=== PATIENT | female | born 1990 | race Two or more races ===

== ENCOUNTER 2023-12-09 13:35 | Observation (INO) | payer SELFPAY ==
[~2023-12-09] VITALS: Ht 175 cm; Wt 79.5 kg
[2023-12-09 14:55] LABS: Basophils # (auto) 0 10 ^3/uL (0-0.2); Basophils % (auto) 0.3 % (0.0-2.0); Eosinophils # (auto) 0.1 10 ^3/uL (0-0.8); Eosinophils % (auto) 0.9 % (0.0-7.0); Hematocrit 29.9 % (36.0-46.0); Hemoglobin 10.4 g/dL (12.2-16.2); Lymphocytes # (auto) 1.2 10 ^3/uL (0.4-5.4); Lymphocytes % (auto) 17.2 % (10.0-50.0); Mean Corpuscular Hemoglobin 30.9 pg (28.0-32.0); Mean Corpuscular Hgb Conc. 34.7 g/dL (32.0-36.0); Mean Corpuscular Volume 89.1 fL (80.0-100.0); Monocytes # (auto) 0.4 10 ^3/uL (0-1.3); Monocytes % (auto) 6.2 % (0.0-12.0); Neutrophils # (auto) 5.2 10 ^3/uL (1.6-8.6); Neutrophils % (auto) 75.4 % (37.0-80.0); Nucleated Red Blood Cells % 0.1 %; Red Blood Cells 3.35 10^6/uL (4.0-5.20); Red Cell Distribution Width 13.1 % (11.8-14.3); White Blood Cell 6.9 10^3/uL (4.4-10.8)
[2023-12-09 15:12] LABS: Alanine Aminotransferase 17 U/L (7-40); Albumin 3.6 g/dL (3.2-4.8); Alkaline Phosphatase 126 U/L (46-116); Anion Gap 9 (5-15); Aspartate Aminotransferase 17 U/L (13-40); BUN/Creatinine Ratio 18.8 (10.0-20.0); Blood Urea Nitrogen 9 mg/dL (9-23); Calcium 9.3 mg/dL (8.7-10.4); Carbon Dioxide 21 mmol/L (20-30); Chloride 109 mmol/L (98-107); Glucose 75 mg/dL (74-106); Sodium 139 mmol/L (136-145); Uric Acid 4.4 mg/dL (3.1-7.8)
[2023-12-09 15:13] LABS: Bilirubin, Total 0.4 mg/dL (0.2-1.0); Total Protein 6.2 g/dL (5.7-8.2)
[2023-12-09 15:19] LABS: INR 0.92 (0.9-1.15); Partial Thromboplastin Time 26.9 SEC (24.5-34.5); Prothrombin Time 9.8 sec (9.3-11.8)
[2023-12-09 16:07] LABS: Amphetamine Screen, Urine Neg (NEGATIVE); Barbiturate Scree,Urine Neg (NEGATIVE); Benzodiazephine Screen, Urine Neg (NEGATIVE); Cocaine Screen, Urine Neg (NEGATIVE); Urine Bacteria FEW /hpf (None Seen); Urine Blood Negative /uL (Negative); Urine Clarity Turbid (Clear); Urine Color Yellow (Yellow); Urine Mucus FEW (None Seen); Urine Protein, UAD 1+ (Negative); Urine Specific Gravity 1.034 (1.001-1.035); Urine Urobilinogen 2 mg/dL (Negative); Urine WBC 3 /hpf (0 - 5)
[2023-12-09 16:08] LABS: Cannabinoid Screen, Urine Neg (NEGATIVE); Opiate Scree,Urine Neg (NEGATIVE); Phencyclidine Screen, Urine Neg (NEGATIVE)
[2023-12-09 16:14] LABS: Creatinine, Urine 244.54 mg/dL (30.0-125.0); Urine Protein/Creatinine Ratio 0.12
[2023-12-09] MEDS ORDERED: PREN-96 PO (16:29)
[2023-12-11 03:06] LABS: RPR Non Reactive (Non Reactive)
[2023-12-11 08:06] LABS: Rubella Antibodies, IgG 1.75 index (Immune >0.99)
== END 2023-12-09 16:45 | disposition home or self-care (01) ==
LOC: LDRP 13:35
PROVIDERS: ADMIT Obstetrics & Gynecology; ATTEND Obstetrics & Gynecology
DX: O36.8130 Decreased fetal movements, third trimester, not applicable or unspecified (principal); Z3A.40 40 weeks gestation of pregnancy
CPT/HCPCS: 36415; 59025; 76805; 76818; 80053; 80307; 81001; 81002; 82570; 84156; 84550; 85025; 85610; 85730; 86592; 86703; 86762; 86803; 86850; 86900; 86901; 87340; 87491; 87591; 94760; G0378

== ENCOUNTER 2023-12-14 09:48 | Inpatient (IN) | payer SELFPAY ==
[~2023-12-14] VITALS: Ht 167.6 cm; Wt 68.0 kg
[~2023-12-14 09:48] MED LIST: PREN-96 PO
[2023-12-14] MEDS ORDERED: BUTORPHANOL TARTRATE 2 MG/1 ML VIAL IV PRN ×2 (10:15)
[2023-12-14 10:42] LABS: Basophils # (auto) 0 10 ^3/uL (0-0.2); Basophils % (auto) 0.2 % (0.0-2.0); Eosinophils # (auto) 0.1 10 ^3/uL (0-0.8); Eosinophils % (auto) 0.8 % (0.0-7.0); Hematocrit 32.5 % (36.0-46.0); Lymphocytes # (auto) 1.6 10 ^3/uL (0.4-5.4); Lymphocytes % (auto) 14.9 % (10.0-50.0); Mean Corpuscular Hemoglobin 30.1 pg (28.0-32.0); Mean Corpuscular Hgb Conc. 33.9 g/dL (32.0-36.0); Mean Corpuscular Volume 88.7 fL (80.0-100.0); Monocytes # (auto) 0.4 10 ^3/uL (0-1.3); Monocytes % (auto) 3.7 % (0.0-12.0); Neutrophils # (auto) 8.5 10 ^3/uL (1.6-8.6); Neutrophils % (auto) 80.4 % (37.0-80.0); Red Blood Cells 3.67 10^6/uL (4.0-5.20); Red Cell Distribution Width 13.3 % (11.8-14.3); White Blood Cell 10.5 10^3/uL (4.4-10.8)
[2023-12-14] MEDS ORDERED: TERBUTALINE SULFATE 1 MG/ML 1ML VIAL SC PRN (10:45)
[2023-12-14] MEDS: DERMOPLAST 60ML BOTTLE TOP PRN (10:50)
[2023-12-14] MEDS: PHISODERM TOP SOLN 240ML BTL TOP PRN (10:50)
[2023-12-14] MEDS: WITCH HAZEL-GLYCERIN PAD TOP PRN (10:51)
[2023-12-14] MEDS: LIDOCAINE 2%HCL (LOCAL ANESTH.) INJ 20ML MDV IJ PRN (10:51)
[2023-12-14] MEDS: PENICILLIN G POT 5MIL/D5 50ML 50 ML IV ONE (10:51)
[2023-12-14] MEDS: LACTATED RINGER'S 1,000 ML IV SCH (10:51)
[2023-12-14 11:04] LABS: INR 0.91 (0.9-1.15); Partial Thromboplastin Time 27.6 SEC (24.5-34.5); Prothrombin Time 9.7 sec (9.3-11.8)
[2023-12-14 11:07] LABS: Alanine Aminotransferase 15 U/L (7-40); Albumin 3.9 g/dL (3.2-4.8); Alkaline Phosphatase 136 U/L (46-116); Anion Gap 6 (5-15); Aspartate Aminotransferase 14 U/L (13-40); BUN/Creatinine Ratio 18.9 (10.0-20.0); Bilirubin, Total 0.4 mg/dL (0.2-1.0); Blood Urea Nitrogen 10 mg/dL (9-23); Calcium 9.3 mg/dL (8.5-10.1); Carbon Dioxide 24 mmol/L (20-30); Chloride 106 mmol/L (98-107); Glucose 83 mg/dL (74-106); Potassium 3.6 mmol/L (3.5-5.1); Sodium 136 mmol/L (136-145); Total Protein 6.5 g/dL (5.7-8.2)
[2023-12-14] MEDS: LIDOCAINE 2%HCL (LOCAL ANESTH.) INJ 20ML MDV ONE (11:50)
[2023-12-14] MEDS: LACT. RINGERS/OXYTOCIN 20UNITS 500 ML IV ONE ×2 (11:50)
[2023-12-14] MEDS ORDERED: IBUPROFEN 600 MG TAB PO PRN (12:15)
[2023-12-14] MEDS ORDERED: PENICILLIN G POTASSIUM 2,500,000 UNITS in D5W 5% 50 ML IV SCH (14:15)
[2023-12-14 15:20] VITALS: BP 135/78; PULSE 70; RESP 18; TEMP 98; O2SAT 98
[2023-12-14 18:30] VITALS: BP 137/71; PULSE 73; RESP 20; TEMP 98.1; O2SAT 97
[2023-12-14] MEDS: DOCUSATE SOD 100 MG CAP PO SCH (21:56)
[2023-12-14 23:00] VITALS: BP 143/95; PULSE 72; RESP 20; TEMP 98.1; O2SAT 98
[2023-12-14 23:10] VITALS: BP 131/84; RESP 20
[2023-12-14] MEDS: ACETAMINOPHEN 325 MG TAB PO PRN (23:30)
[2023-12-14 23:31] LABS: Basophils # (auto) 0.1 10 ^3/uL (0-0.2); Basophils % (auto) 0.5 % (0.0-2.0); Eosinophils # (auto) 0.1 10 ^3/uL (0-0.8); Eosinophils % (auto) 0.7 % (0.0-7.0); Hematocrit 29.1 % (36.0-46.0); Hemoglobin 9.9 g/dL (12.2-16.2); Lymphocytes # (auto) 1.9 10 ^3/uL (0.4-5.4); Lymphocytes % (auto) 18.3 % (10.0-50.0); Mean Corpuscular Hemoglobin 30.1 pg (28.0-32.0); Mean Corpuscular Volume 88.5 fL (80.0-100.0); Monocytes # (auto) 0.6 10 ^3/uL (0-1.3); Monocytes % (auto) 5.2 % (0.0-12.0); Neutrophils % (auto) 75.3 % (37.0-80.0); Red Blood Cells 3.29 10^6/uL (4.0-5.20); White Blood Cell 10.6 10^3/uL (4.4-10.8)
[2023-12-14 23:44] LABS: INR 0.91 (0.9-1.15); Partial Thromboplastin Time 26.8 SEC (24.5-34.5); Prothrombin Time 9.7 sec (9.3-11.8)
[2023-12-15 00:18] LABS: Alanine Aminotransferase 15 U/L (7-40); Albumin 3.5 g/dL (3.2-4.8); Alkaline Phosphatase 117 U/L (46-116); Anion Gap 5 (5-15); Aspartate Aminotransferase 25 U/L (13-40); BUN/Creatinine Ratio 17.4 (10.0-20.0); Bilirubin, Total 0.3 mg/dL (0.2-1.0); Blood Urea Nitrogen 8 mg/dL (9-23); Calcium 9.3 mg/dL (8.5-10.1); Carbon Dioxide 22 mmol/L (20-30); Chloride 109 mmol/L (98-107); Glucose 108 mg/dL (74-106); Potassium 3.8 mmol/L (3.5-5.1); Sodium 136 mmol/L (136-145); Total Protein 5.8 g/dL (5.7-8.2)
[2023-12-15] MEDS ORDERED: KETOROLAC TROMETH 30 MG/ML 1ML VIAL IV ONE (01:15)
[2023-12-15 02:50] VITALS: BP 116/66; PULSE 62; RESP 16; TEMP 98; O2SAT 98
[2023-12-15 07:06] LABS: RPR Non Reactive (Non Reactive)
[2023-12-15 08:57] LABS: Basophils # (auto) 0 10 ^3/uL (0-0.2); Basophils % (auto) 0.2 % (0.0-2.0); Eosinophils # (auto) 0.1 10 ^3/uL (0-0.8); Eosinophils % (auto) 0.8 % (0.0-7.0); Hematocrit 27.7 % (36.0-46.0); Hemoglobin 9.7 g/dL (12.2-16.2); Lymphocytes # (auto) 1.5 10 ^3/uL (0.4-5.4); Lymphocytes % (auto) 13.9 % (10.0-50.0); Mean Corpuscular Hemoglobin 30.9 pg (28.0-32.0); Mean Corpuscular Hgb Conc. 35.1 g/dL (32.0-36.0); Monocytes # (auto) 0.5 10 ^3/uL (0-1.3); Monocytes % (auto) 4.6 % (0.0-12.0); Neutrophils # (auto) 8.6 10 ^3/uL (1.6-8.6); Neutrophils % (auto) 80.5 % (37.0-80.0); Red Blood Cells 3.15 10^6/uL (4.0-5.20); Red Cell Distribution Width 13.1 % (11.8-14.3); White Blood Cell 10.7 10^3/uL (4.4-10.8)
[2023-12-15] MEDS: PRENATAL VITAMIN TAB PO SCH (09:41)
[2023-12-15 12:14] VITALS: BP 130/87; PULSE 66; RESP 18; TEMP 98.1; O2SAT 99
[2023-12-16 19:06] LABS: Treponema pallidum Ab (FTA-Ab) Non Reactive (Non Reactive)
== END 2023-12-15 16:26 | disposition home or self-care (01) | DRG 807 ==
LOC: LDRP 09:48 → OBSVTOIN 10:07
PROVIDERS: ADMIT Obstetrics & Gynecology; ATTEND Obstetrics & Gynecology
PROC: 10E0XZZ Delivery of Products of Conception, External Approach (ICD-10-PCS; principal; 2023-12-14)
PROC: 0HQ9XZZ Repair Perineum Skin, External Approach (ICD-10-PCS; 2023-12-14)
DX: O48.0 Post-term pregnancy (principal); Z37.0 Single live birth; Z3A.40 40 weeks gestation of pregnancy; O70.0 First degree perineal laceration during delivery
CPT/HCPCS: 36415; 59025; 59409; 80053; 81002; 84550; 85025; 85610; 85730; 86592; 86850; 86900; 86901; 94760; 96360; 96361; 96365; 96366; G0378; J2540; J2590; J7060